=== PATIENT | female | born 1930 | race Hispanic/Latino ===

== ENCOUNTER 2017-11-16 17:45 | Inpatient (IN) | payer MEDICARE ==
[~2017-11-16] VITALS: Ht 152.4 cm; Wt 63.5 kg
[~2017-11-16 17:45] MED LIST: AEC81 PO; ATRO10DR OD; BRIM5DRO OD; CALC667T5 PO; DORZ210OS OD; FOLI1TAB85 PO; IPRA3AMP4 IH; ISOS60TA4 PO; LORA10TA7 PO; PREDAOS OD
[2017-11-16 18:41] LABS: BASOPHILS % (AUTO) 1.2 % (0.0-5.0); EOSINOPHILS % (AUTO) 2.4 % (0.0-8.0); LYMPHOCYTES % (AUTO) 9.7 % (21.0-51.0); MEAN CORPUSCULAR HEMOGLOBIN 29.9 pg (27.0-33.0); MEAN CORPUSCULAR VOLUME 96.4 fL (79-99); NEUTROPHILS % (AUTO) 79.7 % (40.0-77.0); NUCLEATED RED BLOOD CELLS 0.1 % (0.0-0.19); PLATELET COUNT (AUTO) 104 K/uL (130-400); RED BLOOD CELL COUNT(AUTO) 1.87 MIL/uL (4.00-5.50); RED CELL DISTRIBUTION WIDTH 20.9 % (11.0-15.5)
[2017-11-16 18:50] LABS: INR 1.07 (0.85-1.15); PARTIAL THROMBOPLASTIN TIME 24.6 SEC (26.3-35.5); PROTHROMBIN TIME 11.2 SEC (9.6-11.6)
[2017-11-16 19:07] LABS: CREATININE 5.2 mg/dL (0.5-1.5); POTASSIUM 4.1 mmol/L (3.5-5.1)
[2017-11-16 19:20] LABS: ALBUMIN 3.1 g/dL (3.5-5.0); BILIRUBIN,TOTAL 0.4 mg/dL (0.2-1.0); TOTAL PROTEIN, SERUM 5.8 g/dL (6.0-8.3)
[2017-11-16 19:22] LABS: APPEARANCE,URINE Turbid (CLEAR); BILIRUBIN,URINE Negative (NEGATIVE); COLOR,URINE Yellow (YELLOW); GLUCOSE, URINE (UA) Negative (NEGATIVE); KETONES,URINE Negative (NEGATIVE); LEUKOCYTE ESTERASE ,URINE Large (NEGATIVE); NITRATE,URINE Negative (NEGATIVE); OCCULT BLOOD,URINE Large (NEGATIVE); PROTEIN,URINE >=1000 (NEGATIVE); UROBILINOGEN,URINE 0.2 mg/dL (0.2-1.0)
[2017-11-16 19:30] LABS: BACTERIA,URINE Many /HPF (None Seen)
[2017-11-16 19:31] LABS: RBC,URINE 0-1 /HPF (0-1); SQUAMOUS EPITHELIAL CELL,UR 0-2 /LPF (0-2)
[2017-11-16 19:32] LABS: WBC,URINE >100 /HPF (0-1)
[2017-11-16] MEDS ORDERED: PANTOPRAZOLE SODIUM 80 MG in NS 100ML IVP SCH (19:45)
[2017-11-17 04:20] VITALS: BP 101/45
[2017-11-17 05:26] LABS: MEAN CORPUSCULAR HEMOGLOBIN 30.2 pg (27.0-33.0); MEAN CORPUSCULAR HGB CONC 31.5 g/dL (32.0-36.0); MEAN CORPUSCULAR VOLUME 95.9 fL (79-99); NUCLEATED RED BLOOD CELLS 0.1 % (0.0-0.19); PLATELET COUNT (AUTO) 92 K/uL (130-400); RED BLOOD CELL COUNT(AUTO) 1.88 MIL/uL (4.00-5.50); RED CELL DISTRIBUTION WIDTH 20.8 % (11.0-15.5); WHITE BLOOD COUNT (AUTO) 5.3 K/uL (4.8-10.8)
[2017-11-17 06:06] LABS: CREATININE 5.7 mg/dL (0.5-1.5)
[2017-11-17] MEDS ORDERED: ACET-66 PO (06:30)
[2017-11-17] MEDS ORDERED: CHOL100040 PO (06:30)
[2017-11-17] MEDS ORDERED: TRAM50TA4 PO (06:33)
[2017-11-17] MEDS ORDERED: SOD85CRE TP (06:33)
[2017-11-17] MEDS ORDERED: ALBUMIN (HUMAN) 25% 100 ML IV PRN (07:45)
[2017-11-17] MEDS ORDERED: 0.9% SODIUM CHLORIDE 250 ML IV BAG IV PRN (07:45)
[2017-11-17] MEDS ORDERED: SODIUM CHLORIDE 0.9% 1000ML 1,000 ML IV PRN (07:45)
[2017-11-17] MEDS ORDERED: FOLI1TAB85 PO (07:58)
[2017-11-17] MEDS ORDERED: SEVE800T7 PO (07:58)
[2017-11-17] MEDS ORDERED: ASPI-555 PO (07:58)
[2017-11-17 08:00] VITALS: BP 111/56
[2017-11-17] MEDS ORDERED: UMEC1DIS IH (08:04)
[2017-11-17] MEDS ORDERED: PANTOPRAZOLE SODIUM 40 MG TABLET.DR PO SCH (09:15)
[2017-11-17 11:00] VITALS: BP 110/41
[2017-11-17 16:00] VITALS: BP 109/56
[2017-11-17] MEDS ORDERED: ONDANSETRON HCL 4 MG/2 ML VIAL IVP PRN (19:00)
[2017-11-17 20:00] VITALS: BP 120/58
[2017-11-18] VITALS: BP 104/46
[2017-11-18 04:00] VITALS: BP 102/46
[2017-11-18 04:04] LABS: MEAN CORPUSCULAR HGB CONC 33.6 g/dL (32.0-36.0); MEAN CORPUSCULAR VOLUME 92.3 fL (79-99); PLATELET COUNT (AUTO) 82 K/uL (130-400); RED BLOOD CELL COUNT(AUTO) 2.71 MIL/uL (4.00-5.50); RED CELL DISTRIBUTION WIDTH 18.5 % (11.0-15.5); WHITE BLOOD COUNT (AUTO) 5.8 K/uL (4.8-10.8)
[2017-11-18 04:07] LABS: CREATININE 4.2 mg/dL (0.5-1.5); PHOSPHORUS 2.9 mg/dL (2.5-4.9); POTASSIUM 3.8 mmol/L (3.5-5.1)
[2017-11-18 06:03] LABS: BAND NEUTROPHILS % (MANUAL) 6 % (0-2); BASOPHILS % (MANUAL) 3 % (0-2); EOSINOPHILS % (MANUAL) 1 % (1-6); LYMPHOCYTES % (MANUAL) 11 % (22-44); MONOCYTES % (MANUAL) 3 % (2-9); REACTIVE LYMPHOCYTES 2 % (0-0); SEGMENTED NEUTROPHILS % 74 % (40-70)
[2017-11-18 06:04] LABS: MAN.DIFF COMMENT-IMPRESSION MANUAL DIFFERENTIAL; PLATELET MORPHOLOGY COMMENT DECREASED
[2017-11-18 08:00] VITALS: BP 103/51
[2017-11-18] MEDS: PANTOPRAZOLE SODIUM 40 MG TABLET.DR PO SCH (08:30)
[2017-11-18 11:00] VITALS: BP 101/45
[2017-11-18] MEDS ORDERED: ACETAMINOPHEN EXTRA STRENGTH 500 MG TABLET PO PRN (13:45)
[2017-11-18] MEDS ORDERED: TRAMADOL HCL 50 MG TABLET PO PRN (13:45)
[2017-11-18] MEDS ORDERED: IPRATROPIUM/ALBUTEROL SULFATE 3 ML SOLUTION IH PRN (13:45)
[2017-11-18] MEDS: ACETAMINOPHEN 325 MG TAB PO PRN (14:01)
[2017-11-18 16:00] VITALS: BP 118/51
[2017-11-18] MEDS: PREDNISOLONE ACETATE 1% 5ML DROPS.SUSP OD SCH ×2 (17:34→20:33)
[2017-11-18] MEDS: SEVELAMER HCL 800 MG TABLET PO SCH (17:34)
[2017-11-18] MEDS: CALCIUM ACETATE 667 MG CAPSULE PO SCH (17:34)
[2017-11-18 20:00] VITALS: BP 95/47
[2017-11-18] MEDS: TRAMADOL HCL 50 MG TABLET PO SCH (20:33)
[2017-11-19] VITALS: BP 98/44
[2017-11-19 03:50] LABS: HEMATOCRIT 24.5 % (36-48); MEAN CORPUSCULAR HEMOGLOBIN 30.8 pg (27.0-33.0); MEAN CORPUSCULAR HGB CONC 32.9 g/dL (32.0-36.0); MEAN CORPUSCULAR VOLUME 93.5 fL (79-99); NUCLEATED RED BLOOD CELLS 0.1 % (0.0-0.19); PLATELET COUNT (AUTO) 79 K/uL (130-400); RED BLOOD CELL COUNT(AUTO) 2.62 MIL/uL (4.00-5.50); RED CELL DISTRIBUTION WIDTH 18.2 % (11.0-15.5)
[2017-11-19 03:59] LABS: CREATININE 5.6 mg/dL (0.5-1.5); POTASSIUM 4.4 mmol/L (3.5-5.1)
[2017-11-19 04:00] VITALS: BP 114/52
[2017-11-19 08:00] VITALS: BP 121/67
[2017-11-19] MEDS: HOME MEDICATION 1 EACH PO SCH (09:00)
[2017-11-19] MEDS: ASPIRIN 81 MG EC TAB PO SCH (10:12)
[2017-11-19] MEDS: PANTOPRAZOLE SODIUM 40 MG TABLET.DR PO SCH (10:12)
[2017-11-19] MEDS: SEVELAMER HCL 800 MG TABLET PO SCH ×3 (10:12→16:52)
[2017-11-19] MEDS: FOLIC ACID/VITAMIN B COMP W-C 1 MG CAPSULE PO SCH (10:12)
[2017-11-19] MEDS: TRAMADOL HCL 50 MG TABLET PO SCH ×2 (10:14→20:57)
[2017-11-19] MEDS: ISOSORBIDE MONO 60 MG TAB.SR PO SCH (10:14)
[2017-11-19] MEDS: PREDNISOLONE ACETATE 1% 5ML DROPS.SUSP OD SCH ×4 (10:15→20:58)
[2017-11-19] MEDS: CALCIUM ACETATE 667 MG CAPSULE PO SCH ×3 (10:15→16:53)
[2017-11-19 11:00] VITALS: BP 132/78
[2017-11-19 16:00] VITALS: BP 140/82
[2017-11-19 20:00] VITALS: BP 102/50
[2017-11-20] VITALS: BP 102/52
[2017-11-20 04:00] VITALS: BP 104/50
[2017-11-20 04:52] LABS: HEMATOCRIT 23.3 % (36-48); MEAN CORPUSCULAR HEMOGLOBIN 30.8 pg (27.0-33.0); MEAN CORPUSCULAR HGB CONC 32.7 g/dL (32.0-36.0); MEAN CORPUSCULAR VOLUME 94.1 fL (79-99); NUCLEATED RED BLOOD CELLS 0.1 % (0.0-0.19); PLATELET COUNT (AUTO) 90 K/uL (130-400); RED BLOOD CELL COUNT(AUTO) 2.47 MIL/uL (4.00-5.50); RED CELL DISTRIBUTION WIDTH 17.8 % (11.0-15.5); WHITE BLOOD COUNT (AUTO) 6.8 K/uL (4.8-10.8)
[2017-11-20 04:58] LABS: POTASSIUM 4.8 mmol/L (3.5-5.1)
[2017-11-20] MEDS: SEVELAMER HCL 800 MG TABLET PO SCH ×3 (08:00→18:17)
[2017-11-20] MEDS: CALCIUM ACETATE 667 MG CAPSULE PO SCH ×3 (08:00→18:17)
[2017-11-20 08:54] VITALS: BP 114/53
[2017-11-20] MEDS: HOME MEDICATION 1 EACH PO SCH (09:00)
[2017-11-20] MEDS: ISOSORBIDE MONO 60 MG TAB.SR PO SCH (09:00)
[2017-11-20] MEDS: TRAMADOL HCL 50 MG TABLET PO SCH ×2 (09:00→21:00)
[2017-11-20] MEDS: ASPIRIN 81 MG EC TAB PO SCH (10:24)
[2017-11-20] MEDS: FOLIC ACID/VITAMIN B COMP W-C 1 MG CAPSULE PO SCH (10:25)
[2017-11-20] MEDS: PANTOPRAZOLE SODIUM 40 MG TABLET.DR PO SCH (10:25)
[2017-11-20] MEDS: PREDNISOLONE ACETATE 1% 5ML DROPS.SUSP OD SCH ×4 (10:26→21:24)
[2017-11-20 14:26] VITALS: BP 108/53
[2017-11-20 16:00] VITALS: BP 120/52
[2017-11-20] MEDS ORDERED: PEG 3350/NA SULF,BICARB,CL/KCL 4000 ML SOLN PO SCH (16:00)
[2017-11-20] MEDS: ACETAMINOPHEN 325 MG TAB PO PRN (18:17)
[2017-11-20 20:00] VITALS: BP 105/47
[2017-11-21] VITALS (24 sets, daily range): BP systolic 104–151; BP diastolic 24–78
[2017-11-21 05:42] LABS: BASOPHILS % (AUTO) 0.8 % (0.0-5.0); EOSINOPHILS % (AUTO) 0.5 % (0.0-8.0); HEMATOCRIT 27.9 % (36-48); LYMPHOCYTES % (AUTO) 5.6 % (21.0-51.0); MEAN CORPUSCULAR HEMOGLOBIN 32.4 pg (27.0-33.0); MEAN CORPUSCULAR HGB CONC 34.9 g/dL (32.0-36.0); MONOCYTES % (AUTO) 8.3 % (3.0-13.0); NEUTROPHILS % (AUTO) 84.8 % (40.0-77.0); NUCLEATED RED BLOOD CELLS 0.1 % (0.0-0.19); PLATELET COUNT (AUTO) 84 K/uL (130-400); RED CELL DISTRIBUTION WIDTH 17.6 % (11.0-15.5)
[2017-11-21 05:50] LABS: INR 1.09 (0.85-1.15); PROTHROMBIN TIME 11.4 SEC (9.6-11.6)
[2017-11-21 06:14] LABS: POTASSIUM 3.9 mmol/L (3.5-5.1)
[2017-11-21] MEDS: CALCIUM ACETATE 667 MG CAPSULE PO SCH ×3 (08:00→18:06)
[2017-11-21] MEDS: SEVELAMER HCL 800 MG TABLET PO SCH ×3 (08:00→18:06)
[2017-11-21] MEDS: ASPIRIN 81 MG EC TAB PO SCH (08:13)
[2017-11-21] MEDS: ISOSORBIDE MONO 60 MG TAB.SR PO SCH (08:13)
[2017-11-21] MEDS: FOLIC ACID/VITAMIN B COMP W-C 1 MG CAPSULE PO SCH (08:13)
[2017-11-21] MEDS: HOME MEDICATION 1 EACH PO SCH (08:13)
[2017-11-21] MEDS: PANTOPRAZOLE SODIUM 40 MG TABLET.DR PO SCH (08:13)
[2017-11-21] MEDS: TRAMADOL HCL 50 MG TABLET PO SCH ×2 (08:13→20:44)
[2017-11-21] MEDS: PREDNISOLONE ACETATE 1% 5ML DROPS.SUSP OD SCH ×3 (10:05→20:39)
[2017-11-21] MEDS ORDERED: PROPOFOL 10 MG/ML 20ML VIAL IV ONE (11:53)
[2017-11-21] MEDS ORDERED: PEG 3350/NA SULF,BICARB,CL/KCL 4000 ML SOLN PO ONE (16:00)
[2017-11-22] VITALS (19 sets, daily range): BP systolic 102–144; BP diastolic 46–70
[2017-11-22 04:14] LABS: HEMATOCRIT 27.9 % (36-48); MEAN CORPUSCULAR HEMOGLOBIN 30.9 pg (27.0-33.0); MEAN CORPUSCULAR HGB CONC 33.6 g/dL (32.0-36.0); PLATELET COUNT (AUTO) 88 K/uL (130-400); RED BLOOD CELL COUNT(AUTO) 3.03 MIL/uL (4.00-5.50); RED CELL DISTRIBUTION WIDTH 16.9 % (11.0-15.5); WHITE BLOOD COUNT (AUTO) 6.4 K/uL (4.8-10.8)
[2017-11-22 04:34] LABS: CREATININE 5.8 mg/dL (0.5-1.5); POTASSIUM 4.1 mmol/L (3.5-5.1)
[2017-11-22 05:33] LABS: BAND NEUTROPHILS % (MANUAL) 2 % (0-2); LYMPHOCYTES % (MANUAL) 12 % (22-44); MAN.DIFF COMMENT-IMPRESSION MANUAL DIFFERENTIAL; MONOCYTES % (MANUAL) 5 % (2-9); PLATELET MORPHOLOGY COMMENT DECREASED; REACTIVE LYMPHOCYTES 1 % (0-0); SEGMENTED NEUTROPHILS % 80 % (40-70)
[2017-11-22] MEDS: SEVELAMER HCL 800 MG TABLET PO SCH ×2 (08:00→12:00)
[2017-11-22] MEDS: CALCIUM ACETATE 667 MG CAPSULE PO SCH ×2 (08:00→12:00)
[2017-11-22] MEDS: ISOSORBIDE MONO 60 MG TAB.SR PO SCH (09:00)
[2017-11-22] MEDS: PANTOPRAZOLE SODIUM 40 MG TABLET.DR PO SCH (09:00)
[2017-11-22] MEDS: PREDNISOLONE ACETATE 1% 5ML DROPS.SUSP OD SCH ×2 (09:00→13:00)
[2017-11-22] MEDS: ASPIRIN 81 MG EC TAB PO SCH (09:00)
[2017-11-22] MEDS: HOME MEDICATION 1 EACH PO SCH (09:00)
[2017-11-22] MEDS: FOLIC ACID/VITAMIN B COMP W-C 1 MG CAPSULE PO SCH (09:00)
[2017-11-22] MEDS: TRAMADOL HCL 50 MG TABLET PO SCH (09:00)
[2017-11-22] MEDS ORDERED: DEXTROSE 50%-WATER 50 ML DISP.SYRIN IV ONE (10:34)
== END 2017-11-22 18:45 | disposition home or self-care (01) | DRG 377 ==
LOC: EDH 17:45 → OBSVTOIN 19:29 → EDHIP 19:29 → 3AH 11-17 04:00
PROVIDERS: ADMIT Internal Medicine Nephrology; ATTEND Internal Medicine Nephrology
PROC: 5A1D70Z Performance of Urinary Filtration, Intermittent, Less than 6 Hours Per Day (ICD-10-PCS; 2017-11-17)
PROC: 5A1D70Z Performance of Urinary Filtration, Intermittent, Less than 6 Hours Per Day (ICD-10-PCS; 2017-11-20)
PROC: 0DJ08ZZ Inspection of Upper Intestinal Tract, Via Natural or Artificial Opening Endoscopic (ICD-10-PCS; 2017-11-21)
PROC: 5A1D70Z Performance of Urinary Filtration, Intermittent, Less than 6 Hours Per Day (ICD-10-PCS; principal; 2017-11-22)
PROC: 30233N1 Transfusion of Nonautologous Red Blood Cells into Peripheral Vein, Percutaneous Approach (ICD-10-PCS; 2017-11-22)
PROC: 0DBK8ZX Excision of Ascending Colon, Via Natural or Artificial Opening Endoscopic, Diagnostic (ICD-10-PCS; 2017-11-22)
DX: K29.71 Gastritis, unspecified, with bleeding (principal); N18.6 End stage renal disease; E11.22 Type 2 diabetes mellitus with diabetic chronic kidney disease; K63.3 Ulcer of intestine; D69.6 Thrombocytopenia, unspecified; K57.91 Diverticulosis of intestine, part unspecified, without perforation or abscess with bleeding; I12.0 Hypertensive chronic kidney disease with stage 5 chronic kidney disease or end stage renal disease; D62 Acute posthemorrhagic anemia; I42.9 Cardiomyopathy, unspecified; R65.10 Systemic inflammatory response syndrome (SIRS) of non-infectious origin without acute organ dysfunction; E11.51 Type 2 diabetes mellitus with diabetic peripheral angiopathy without gangrene; K44.9 Diaphragmatic hernia without obstruction or gangrene; J44.9 Chronic obstructive pulmonary disease, unspecified; D63.8 Anemia in other chronic diseases classified elsewhere; H54.61 Unqualified visual loss, right eye, normal vision left eye; I25.10 Atherosclerotic heart disease of native coronary artery without angina pectoris; I48.91 Unspecified atrial fibrillation; K21.0 Gastro-esophageal reflux disease with esophagitis; Z99.2 Dependence on renal dialysis; Z95.1 Presence of aortocoronary bypass graft; Z90.710 Acquired absence of both cervix and uterus; Z83.3 Family history of diabetes mellitus; Z82.49 Family history of ischemic heart disease and other diseases of the circulatory system
CPT/HCPCS: 36415; 36430; 71045; 80048; 80053; 81001; 82270; 82550; 82553; 82948; 84100; 84484; 85025; 85027; 85610; 85730; 86850; 86900; 86901; 86922; 88305; 88342; 90935; 93005; 94664; 97039; 99291; C9113; J2405; J2704; J7030; J7070; J7510; P9016; P9046